=== PATIENT | female | born 1985 | race Caucasian/White ===

== ENCOUNTER 2019-04-09 12:36 | Emergency (ER) | payer OTHER ==
[2019-04-09 13:52] LABS: URINE BLOOD (Dip) POC Negative (NEGATIVE); URINE GLUCOSE (Dip) POC Negative (NEGATIVE); URINE KETONES (Dip) POC Negative (NEGATIVE); URINE LEUKOCYTE EST (Dip) POC Negative (NEGATIVE); URINE NITRITE (Dip) POC Negative (NEGATIVE); URINE TOTAL PROTEIN POC 1+ (NEGATIVE)
[2019-04-09 13:52] LABS: URINE PH (Dip) POC 7.5 (5.0-8.5)
[2019-04-09] MEDS: KETOROLAC 30 MG INJ IM (13:57)
[2019-04-09] MEDS: HYDROCODONE/APAP (5/325) TAB PO (15:01)
== END 2019-04-09 14:54 | disposition home or self-care (01) ==
LOC: FTE 14:54
DX: M54.5 Low back pain (principal)
CPT/HCPCS: 72100; 81003; 81025; 96372; 99284-25